=== PATIENT | male | born 1960 | race Caucasian/White ===

== ENCOUNTER 2016-08-29 23:35 | Day surgery (SDC) | payer OTHER ==
[~2016-08-29] VITALS: Ht 177.8 cm; Wt 102.3 kg
--- NOTE | 2016-08-29 23:37 | ED.REPORT ---
HPI-General Illness Date of Service August 29, 2016 ED Provider: Jarvis Noonan DO Patient is a 56 year old male with a history of esophageal stricture who presents to the ED due to difficulty clearing food from his esophagus onset 2199. Patient reports that he was eating a steak and has not having difficulty clearing saliva and food since onset. Nursing Notes Stated Complaint: ESOPH FOOD INPACTION Nursing Notes Reviewed: Yes Allergies: Coded Allergies: No Known Allergies (Unverified , 08/29/16) General Time Seen by MD: 23:37 Chief Complaint Other (difficulty clearing esophagus) Hx Obtained From: Patient Arrived By: Walk-in Sudden in Onset?: Yes Onset Occurred: 1 - 4 hours ago Symptom Duration: Since onset Recent Healthcare: No recent doctor visit, No recent hospitalization Similar Sx Previous: Yes Past Medical History Past Medical History esophageal stricture Social History Other Social History: , Local resident Ambulatory Status Independent Review of Systems difficulty swallowing Full Review of Systems Respiratory: Denies: Non-productive cough GI: Denies: Vomiting Complete sys rev & neg: except as marked. Physical Exam Vital Signs Vital Signs Date Time Temp Pulse Resp B/P Pulse Ox O2 Delivery O2 Flow Rate FiO2 08/30/16 00:31 93 18 152/80 98 Room Air 08/29/16 23:40 36.6 95 18 162/92 100 Room Air Initial VS: Reviewed General/Constitutional: Awake, Alert Distress / Hydration: Positive: Distress moderate Head / Eyes: Atraumatic, Normocephalic, PERRL, EOMI difficulty clearing saliva Neck: Atraumatic, Supple, Full range of motion Respiratory / Chest: Atraumatic, Breath sounds NL, Breath sounds = bilat, No respiratory distress Cardiovascular: Heart rate NL, Regular rhythm, Heart sounds NL Abdomen: Atraumatic, Soft, Non-tender Upper Extremities Upper Extremity / MS: Atraumatic, Full range of motion Lower Extremity / Pelvis / MS: Atraumatic, Full range of motion Skin: Atraumatic, Color NL, No rash, Warm, Dry Neurologic: Oriented X3, Speech NL, No motor deficits, No sensory deficits Psychiatric: Affect NL, Mood NL Re-Eval/Medical Decision Med Decision/Clinical Course No results with coke and valium, needs to follow up with GI to have an endoscopy. Time of Eval: 00:01 Patient Status: Mild relief Consultation : Referral / Consult Name: Onesimo Garay MD Consulted With: On-call physician (GI) Call Returned at: 23:43 Marketer: Agrees with eval, Agrees with plan Counseled Regarding: Diagnosis, Lab results, Need for follow-up, When/why to return to ED Discharge & Departure Primary Impression: Esophageal obstruction due to food impaction Disposition: Home Discharge Condition All VS Reviewed: Yes Condition: Stable Patient Instructions: Esophageal Stricture (ED) Referrals: NOPCP (PCP) Scribe Attestation Portions of this note were transcribed by Анна Cota. I, Dr. Noonan personally performed the history, physical exam and medical decision-making; I reviewed and confirmed the accuracy of the information in the transcribed note. Signed by: Jose Miguel Ramesh, 08/30/16 and 0013 Jarvis Noonan DO August 29, 2016 23:37 Carolina Cota August 30, 2016 00:15
[2016-08-29 23:40] VITALS: BP 162/92; PULSE 95; RESP 18; O2SAT 100
[2016-08-29] MEDS ORDERED: Glucagon 1 mg/mL Inj IV ONE (23:40)
[2016-08-29] MEDS ORDERED: fentaNYL-PF 50 mCg/mL 2 mL Inj ONE (23:49)
[2016-08-29] MEDS ORDERED: fentaNYL-PF 50 mCg/mL 2 mL Inj IVPUSH PRN (23:55)
[2016-08-30] VITALS (8 sets, daily range): BP systolic 129–152; BP diastolic 80–91; PULSE 87–93; RESP 10–18; O2SAT 94–98
[2016-08-30] MEDS ORDERED: Succinylcholine Chloride 20 mg/mL 5 mL Inj ONE (00:54)
[2016-08-30] MEDS ORDERED: Phenylephrine/NS-PF 100 mCg/mL 5 mL Syringe IVPUSH ONE (00:54)
[2016-08-30] MEDS ORDERED: fentaNYL-PF 50 mCg/mL 2 mL Inj ONE (00:54)
[2016-08-30] MEDS ORDERED: Ondansetron 2 mg/mL 2 mL Inj ONE ×2 (00:54→02:05)
[2016-08-30] MEDS ORDERED: Propofol 10,000 mCg/mL 20 mL Inj ONE (00:54)
[2016-08-30] MEDS ORDERED: Lactated Ringer's 500 ML IV PRN (02:07)
[2016-08-30] MEDS ORDERED: Lactated Ringer's 1,000 ML IV SCH (02:07)
[2016-08-30] MEDS ORDERED: MetoCLOpramide 5 mg/mL 2 mL Inj IVPUSH PRN (02:10)
[2016-08-30] MEDS ORDERED: HYDROmorphone 1 mg/mL Inj IVPUSH PRN (02:10)
[2016-08-30] MEDS ORDERED: Dexamethasone 4 mg/mL Inj IVPUSH PRN (02:10)
[2016-08-30] MEDS ORDERED: Phenylephrine 10,000 mCg/mL Inj IVPUSH PRN (02:10)
[2016-08-30] MEDS ORDERED: EPHEDrine Sulfate 50 mg/mL Inj IVPUSH PRN (02:10)
[2016-08-30] MEDS ORDERED: fentaNYL-PF 50 mCg/mL 2 mL Inj IVPUSH PRN (02:10)
[2016-08-30] MEDS ORDERED: Ondansetron 2 mg/mL 2 mL Inj IVPUSH PRN (02:10)
--- NOTE | 2016-08-30 02:11 | PCM.HPANE ---
Patient Data Date of Service: August 30, 2016 Surgeon Admitting Provider: Attending Provider:Onesimo Garay MD Primary Care Physician:Remberto Rollins MD Other Provider: Reason for Visit Esophogeal Food Impaction Ht/WT & BMI Height (Feet): 5 Height (Inches): 10.00 Weight (Kilograms): 102.270 Body Mass Index Allergies Coded Allergies: No Known Allergies (Unverified , 08/29/16) Past Anesthesia History Anesthesia History: Denies:: Abnormal Airway, Anesthesia Reactions, Difficult Intubation Diabetes History Hx Diabetes?: No MRSA MRSA: No Medications Hypertension Medication: No Home Meds Incl Beta Erin: No History History of ENT Problems?: Yes HEENT History: Positive for:: Dysphagia Denies:: Abnormal Airway Difficult Intubation Hearing Problem Denture Type: None Teeth Condition: Within Normal Limits Hx of Heart Problems?: No Cardiovascular History: Denies:: Cardiac Surgery Hx of Respiratory Problem?: No Respiratory History: Denies:: Asthma Hx Neurologic Problems?: No Neurological History: Denies:: CVA Hx of GI Problems?: No Hx of Problems?: No HX of Peritoneal Dialysis: No Hx Musculoskeletal Problems?: No Hx of Psycho/Social Problems?: No Hx Surgeries?: Yes Hx Any Other Health Problems?: No Hx Alcohol Use: No Stop/Bang Treated for Sleep Apnea?: No Do You Have a CPAP Machine?: No S-Snoring: Do You Snore Loudly: No T-Tired: feel tired, fatigued: No O-Obsered: Observed not breath: No P-Blood Pressure: treated: No B- Body Mass Index > 35 kg/m2: No A- Age over 50: Yes N- Neck Large Circumference: No G- Gender Male: Yes MINERVA Risk Assessment: Low Risk, <3 Yes Risk Assessment Category Category 1A: Patient has history of documented sleep apnea, and HAS NOT received any narcotic, sedative or anesthesia administration during this stay. Category 1B: Patient has history of documented sleep apnea, and HAS received any narcotic , sedative or anesthesia administration during this stay Category 2: Patient has SUSPECTED Obstructive Sleep Apnea, and HAS received any narcotic , sedative or anesthesia administration during this stay. Category 3: Patient has SUSPECTED Obstructive Sleep Apnea and HAS NOT received narcotic, sedative or anesthesia administration during this stay. Category 4: Outpatient in Procedural Areas with known sleep apnea or who screen positive for High Risk via the STOP/BANG questionnaire. Exam Exam Vital Signs Vital Signs Date Time Temp Pulse Resp B/P Pulse Ox O2 Delivery O2 Flow Rate FiO2 08/30/16 02:08 90 15 137/84 95 Room Air 08/30/16 02:05 36.6 92 14 129/85 94 Room Air 08/30/16 00:31 93 18 152/80 98 Room Air 08/29/16 23:40 36.6 95 18 162/92 100 Room Air General Appearance: Oriented X3 HEENT/AIRWAY: MP 2 Lungs: Clear to Auscultation Heart: Exam Unremarkable Meds/Labs/Diagnostics Admission Meds Current Medications Diazepam (Valium Inj) 5 mg ONCE ONCE IVPUSH Last administered on 08/29/16 23: 59; Start 08/29/16 at 23:40; Stop 08/29/16 at 23:41; Status DC Glucagon (Glucagen Inj) 1 mg ONCE ONCE IV Last administered on 08/29/16 23:59 ; Start 08/29/16 at 23:40; Stop 08/29/16 at 23:41; Status DC Plan Impression Patient chart reviewed, patient interviewed and anesthestic plan with risks, benefits, and alternatives discussed, and informed consent obtained. NPO per Anesth. Guidelines: No ASA Physical Status: ASA2 Plus Emergency Anesthetic Plan: GA Bene/Risks/Altern/Consents: Yes HP Complete Prior to Induction: Yes Leo Francois MD August 30, 2016 02:11
--- NOTE | 2016-08-30 02:16 | PCM.ANEP1 ---
Post Anesthesia PACU Phase 1 Assessment Vital Signs Vital Signs Date Time Temp Pulse Resp B/P Pulse Ox O2 Delivery O2 Flow Rate FiO2 08/30/16 02:08 90 15 137/84 95 Room Air 08/30/16 02:05 36.6 92 14 129/85 94 Room Air 08/30/16 00:31 93 18 152/80 98 Room Air 08/29/16 23:40 36.6 95 18 162/92 100 Room Air Anesthetic Administered: GA Level of Alertness: Awake, talking Pain: No Pain Scale Score: 8 Nausea or Vomiting: No CV Function and Hydration: No Airway Device: Oxygen Delivery: Room Air Lungs: Clear to Auscultation PACU Phase 2 Assessment Complications: No Follow up Care: No Patient Instructions Provided: N/A Comments Patient had RSI, but had gastric content regurgitation with induction of anesthesia. Head immediately lowered for passive eflux away from airway. Oropharynx suctioned to clean. Intubated with no contents observed in the oral pharynx (and no particulate matter observed in suction canister). Breath sounds clear. PIP noted intra-op was 16. Intra-op CXR does not display any particulate matter nor any obvious aspiration. Extubated to room air. I have very little suspicion of any aspiration event. I am waiting until the patient is more awake to discus these events and determine if he feels better served in observation tonight or at home. Leo Francois MD August 30, 2016 02:16
--- NOTE | 2016-08-30 08:56 | DRSVH ---
PROCEDURE: X-RAY CHEST ONE VIEW, PORTABLE ([id number]) INDICATIONS: GASTRIC CONTENTS DURING INTUBATION TECHNIQUE: One view of the chest was acquired. COMPARISON: [facility], CHEST 2 VIEW, 02/03/2013, 16:06. FINDINGS: Surgical changes and devices: Endotracheal tube with the tip projecting approximately 1-2 cm above th e miguel. Lungs and pleura: Lung volumes are decreased. Minimal opacity projecting in the left costophrenic an gle, and streaky opacities in the retrocardiac region No pleural effusions or pneumothorax. . Mediastinum: Mediastinal contours appear normal. Heart size is normal. Bones and chest wall: No suspicious bony lesions. Overlying soft tissues appear unremarkable. IMPRESSION: Endotracheal tube with the tip approximately 1-2 cm above the miguel. Low lung volumes with scattered retrocardiac and left basilar streaky opacities suggesting aspiration /atelectasis. The Dictated by: Alphonse Faria M.D. on 08/30/2016 at 8:52 Approved by: Alphonse Faria M.D. on 08/30/2016 at 8:54
--- NOTE | 2016-08-30 10:05 | CONS ---
[address] [address] CONSULTATION REPORT PATIENT: VERONICA WELLS : 1960 MR#: [id number] ADMIT: 08/30/2016 JOB ID: [id number] DATE OF SERVICE: PHYSICIAN REQUESTING CONSULTATION: Jarvis Noonan DO REASON FOR CONSULTATION: Food bolus obstruction. 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 He has a longstanding history of heartburn for which he takes Tums as needed. He also reports recently having a barium study done at [facility], which showed a stricture in the distal esophagus. He states that he has been in his usual state of health up until this evening when, following a meal that consisted of steak at approximately 10 p.m., he felt as if food was stuck and he could not get it down. He presented to the emergency department for further care. I was contacted by the ED physician, Dr. Noonan, and I had recommended a trial of Glucagon, along with a trial of coca-cola. This, however, was not successful. The patient has trouble swallowing his saliva. He denies any chest pain, nausea, vomiting. He denies any history of prior food bolus obstruction. 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 PAST MEDICAL HISTORY: Significant for arthritis. PAST SURGICAL HISTORY: None. FAMILY HISTORY: Noncontributory. SOCIAL HISTORY: Occasional cigarette use. No alcohol use. MEDICATIONS: He does use etodolac for arthritic-type pain, but no other medications. REVIEW OF SYSTEMS: Otherwise unremarkable. PHYSICAL EXAMINATION: Vital signs are stable. Generally, he is a [id number] gentleman in no apparent distress. He is oriented to person, place and time, and answers questions appropriately. HEENT: No pallor or icterus. Oropharynx is clear. Chest exam: Clear to auscultation bilaterally. CARDIOVASCULAR: S1, S2 heard. Abdomen: Obese, soft, nontender, nondistended. No hepatosplenomegaly. Extremities: Without edema. LABORATORY DATA: No laboratory tests to review. ASSESSMENT/PLAN: A 56-year-old gentleman with a longstanding history of chronic reflux, with recent barium swallow suggesting stricture, who presents with food bolus obstruction. We will plan for urgent endoscopy, or removal of food bolus. The risks and benefits of the procedure was discussed in detail, and the patient was agreeable to proceed. We will recommend following the procedure that he be on an antacid daily, along with follow up in the Gastroenterology Clinic for further management. Also, would recommend that he decrease or stop chronic nonsteroidal anti-inflammatory drug use. Thank you for allowing me to participate in this patient's care. If there are any further questions, please do not hesitate to contact me.
--- NOTE | 2016-08-30 14:36 | ENDO ---
[address] [address] ENDOSCOPY PROCEDURE PATIENT: VERONICA WELLS : 1960 MR#: [id number] ADMIT: 08/30/2016 JOB ID: [id number] DATE: 08/30/2016 PROCEDURE: Esophagogastroduodenoscopy. INDICATION: Food bolus obstruction. The patient's ASA classification, Mallampati score and medications as per anesthesia note. INSTRUMENT USED: GIF H 180 J. PROCEDURE DETAILS: After informed consent was obtained, the patient was brought into the GI suite, where he was placed under general anesthesia and then placed in the left lateral decubitus position. A bite block was placed. The standard EGD scope was then inserted through the bite block and advanced without difficulty to the mid esophagus, where we encountered large amounts of solid food debris and a moderate amount of liquids as well. Using a Bone net, we removed food in small sections. Once this food in the lower esophagus was removed, we were then able to clearly see the GE junction. Once this was noted, the scope was then passed into the stomach and then to the second portion of the duodenum without difficulty. The scope was then withdrawn back. Retroflexion was performed which did not reveal any tumors or masses in the cardia or fundus. The scope was then withdrawn back and the remaining amount of food debris was removed with a Bone net and pushed down with the endoscope. Finally there was a mild amount of fluid remaining in the esophagus which was completely suctioned. Following the suction of fluid, we were able to examine the esophagus and the esophagus appeared ulcerated extending from the GE junction at 42 cm to approximately at about 35-36 cm. The mucosa was quite friable here. No obvious strictures were seen. IMPRESSION: Food bolus obstruction, suspect secondary to reflux esophagitis. RECOMMENDATIONS: 1. Omeprazole 40 mg p.o. b.i.d. 2. Reflux precautions. 3. Soft diet for the next 48 hours. 4. Avoid nonsteroidal anti-inflammatory drugs. 5. Followup in Gastroenterology Clinic in 2-4 weeks. COMPLICATIONS: None. ESTIMATED BLOOD LOSS: Less than 10 mL.
[2016-09-26] MEDS ORDERED: LEVO25TA5 PO (08:18)
[2016-09-26] MEDS ORDERED: ETOD400T PO (08:18)
[2016-09-26] MEDS ORDERED: ATRV10T PO (08:18)
[2016-09-26] MEDS ORDERED: OMEP40CA36 PO (08:18)
== END 2016-08-30 23:59 | disposition home or self-care (01) ==
LOC: SED 08-30 00:07 → END 08-30 00:53
PROVIDERS: ATTEND Internal Medicine Gastroenterology
DX: K22.2 Esophageal obstruction (principal); K21.0 Gastro-esophageal reflux disease with esophagitis; M19.90 Unspecified osteoarthritis, unspecified site; F17.210 Nicotine dependence, cigarettes, uncomplicated
CPT/HCPCS: 43247; 71010; 96361; 96374; 96375; 99284; J0330; J1610; J2370; J2405; J2765; J3010; J3360

== ENCOUNTER 2016-09-27 08:50 | Day surgery (SDC) | payer OTHER ==
[~2016-09-27] VITALS: Ht 177.8 cm; Wt 99.8 kg
[~2016-09-27 08:50] MED LIST: ATRV10T PO; ETOD400T PO; LEVO25TA5 PO; OMEP40CA36 PO; Sodium Chloride LOK Flush 10 mL Syringe IV PRN; fentaNYL-PF 50 mCg/mL 2 mL Inj IVPUSH PRN
[2016-09-27 09:21] VITALS: BP 121/75; PULSE 83; RESP 16; O2SAT 98
[2016-09-27 10:35] VITALS: BP 103/67; PULSE 83; RESP 16; O2SAT 96
[2016-09-27 10:40] VITALS: BP 104/69; PULSE 81; RESP 16; O2SAT 97
[2016-09-27 10:49] VITALS: BP 126/70; PULSE 92; RESP 16; O2SAT 96
[2016-09-27] MEDS: 0.9% Sodium Chloride 1,000 ML IV SCH ×2 (10:54→15:55)
--- NOTE | 2016-09-27 12:25 | ENDO ---
[address] [address] ENDOSCOPY PROCEDURE PATIENT: VERONICA WELLS : 1960 MR#: [id number] ADMIT: 09/27/2016 JOB ID: [id number] DATE OF SERVICE: 09/27/2016 PROCEDURE: Esophagogastroduodenoscopy. INDICATION: Gastroesophageal reflux. ASA CLASSIFICATION: I MALLAMPATI SCORE: 2 MEDICATIONS: Versed at 3 mg, fentanyl 100 mcg. INSTRUMENT USED: GIF-H180J. PROCEDURE DETAILS: After informed consent was obtained, the patient was brought into the GI suite where he was placed on oxygen via nasal cannula and monitored with continuous pulse oximeter, telemetry, and blood pressure monitoring. A time-out was performed. Then, he was placed in a left lateral decubitus position and medications were administered for sedation. A bite block was placed. The standard EGD scope was inserted through the bite block and advanced under direct visualization to the second portion of duodenum without difficulty. FINDINGS: 1. Normal-appearing duodenal bulb, first and second portion. 2. Normal-appearing pylorus, antrum, and gastric body. 3. Retroflexed views of the gastric body reveal a normal-appearing cardia and fundus. 4. The diaphragmatic hiatus was at approximately 41 cm. The squamocolumnar junction was at approximately 39 cm. Arising from the squamocolumnar junction to approximately 37 cm, there was a salmon-colored tongue of mucosa suggestive of Barker's. There were also others several other smaller tongues of salmon-colored mucosa arising from the GE junction. Multiple biopsies were obtained. Additionally, just above the GE junction, there appeared to be possibly a Schatzki's ring. Multiple biopsies were obtained of the Schatzki's ring to disrupt the ring. The remainder of the esophagus otherwise appeared unremarkable. IMPRESSION: 1. Schatzki's ring. 2. 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 3. Small hiatal hernia. RECOMMENDATIONS: 1. Continue PPI daily. 2. Reflux precautions. 3. Follow up in GI clinic. COMPLICATIONS: None. ESTIMATED BLOOD LOSS: Less than 5 mL.
--- NOTE | 2016-09-30 14:08 | PATH ---
SURGICAL PATHOLOGY Attending Physician:Alina Murray CASE STATUS: Signed Out PATIENT NAME: VERONICA WELLS PID: [id number] : 1960 DATE COLLECTED:09/27/2016 17:11 SPECIMEN: Esophagus, Biopsy CLINICAL HISTORY: 1). DISTAL ESOPHAGUS FINAL DIAGNOSIS: 1.DISTAL ESOPHAGUS, BIOPSY: ESOPHAGEAL SQUAMOUS EPITHELIUM AND GASTRIC GLANDULAR MUCOSA WITH CHRONIC ACTIVE INFLAMMATION. Negative for intestinal metaplasia. No evidence of dysplasia or malignancy. ICD10 K20.9 GROSS DESCRIPTION: The specimen is received in formalin, labeled with the patient's name, sublabeled as distal the esophagus, and consists of multiple fragments of bowie-white glistening semi-translucent tissue (1.2 x 1.1 x 0.2 cm in aggregate). Section code: (A) tissue. Specimen is entirely submitted. 09/28/16 JM MICRO DESCRIPTION: See diagnosis. ICD-9 CODES: CPT CODES: 1: 72411 Electronically Signed Out Reza Paulino MD [facility] [address], [place] [address] Technical component performed at [facility], [address] [place] [address] Ave[address], [address]
== END 2016-09-27 23:59 | disposition home or self-care (01) ==
LOC: END 08:50
PROVIDERS: ATTEND Internal Medicine Gastroenterology
DX: K22.2 Esophageal obstruction (principal); K44.9 Diaphragmatic hernia without obstruction or gangrene; K20.9 Esophagitis, unspecified; K21.9 Gastro-esophageal reflux disease without esophagitis; E03.9 Hypothyroidism, unspecified; G47.30 Sleep apnea, unspecified
CPT/HCPCS: 43239; G0500; J2250; J3010; J7030